=== PATIENT | male | born 2005 | race Caucasian/White ===

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

== ENCOUNTER 2025-01-24 13:58 | Observation (INO) | payer OTHER ==
[~2025-01-24] VITALS: Ht 180.3 cm; Wt 72.6 kg
[2025-01-24] VITALS (12 sets, daily range): BP systolic 99–132; BP diastolic 60–90
[2025-01-24] MEDS ORDERED: FentaNYL Citrate 50 MCG/ML 2 ML Injection IV ONE (14:05)
[2025-01-24 14:23] LABS: BASOPHILS PERCENT AUTO 1 % (0-2); EOSINOPHILS ABSOLUTE AUTO 0.18 K/mm3 (0.00-0.68); EOSINOPHILS PERCENT AUTO 2 % (0-6); Hematocrit 45.4 % (37.0-53.0); IMMATURE GRAN ABSOLUTE AUTO 0.07 K/mm3 (0.00-0.10); IMMATURE GRAN PERCENT AUTO 1 % (0-1); LYMPHOCYTES ABSOLUTE AUTO 5.23 K/mm3 (0.84-5.20); LYMPHOCYTES PERCENT AUTO 43 % (21-46); MONOCYTES ABSOLUTE AUTO 0.85 K/mm3 (0.16-1.47); MONOCYTES PERCENT AUTO 7 % (4-13); Mean Corpuscular HGB 30.5 pg (26.0-34.0); Mean Corpuscular Volume 93 fL (80-100); Mean Platelet Volume 9.4 fL (9.1-12.4); NEUTROPHILS ABSOLUTE AUTO 5.86 K/mm3 (1.96-9.15); NEUTROPHILS PERCENT AUTO 48 % (41-73); Platelet Count 344 K/mm3 (150-400); RDW Coefficient Variation 13.8 % (11.7-14.2); RDW Standard Deviation 47.1 fL (35.1-46.3); Red Blood Cell Count 4.91 M/mm3 (4.30-5.90); White Blood Cell Count 12.29 K/mm3 (4.00-11.30)
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
[2025-01-24] MEDS ORDERED: Bupivacaine 0.5% HCl 5 MG/ML 30MLVIAL ONE (14:50)
[2025-01-24] MEDS ORDERED: Lactated Ringer's 1,000 ML IV SCH (15:05)
--- NOTE | 2025-01-24 15:05 | NUR ---
PT HAS 18G IV IN R AC THAT FLOWS WELL TO GRAVITY, SHOWS NO SIGNS OF INFILTRATION.
[2025-01-24] MEDS ORDERED: Ondansetron HCl 2 MG / ML 2ML Vial ONE (15:08)
[2025-01-24] MEDS ORDERED: Dexamethasone Sod Phos 10 MG/ML 1ML VIAL ONE (15:08)
[2025-01-24] MEDS ORDERED: Ketorolac Tromethamine 30mg Vial ONE (15:08)
[2025-01-24] MEDS ORDERED: Rocuronium Bromide 10 MG/ML 5ML Injection IV ONE (15:08)
[2025-01-24] MEDS ORDERED: Sugammadex Sodium 200 MG/2ML SDV (100 MG/ML) ONE (15:09)
[2025-01-24] MEDS ORDERED: HYDROmorphone HCl/Pf 1MG SYR ONE (15:09)
[2025-01-24] MEDS ORDERED: propofoL 20 ML IV ONE ×2 (15:09→15:17)
[2025-01-24] MEDS ORDERED: CeFAZolin Sodium 1000 mg Vial ONE ×2 (15:09)
[2025-01-24] MEDS ORDERED: FentaNYL Citrate 50 MCG/ML 2 ML Injection ONE (15:09)
[2025-01-24 15:10] LABS: Albumin, Blood 4.3 g/dL (3.4-5.0); Albumin/Globulin Ratio 1.5 (0.8-1.8); Bilirubin, Total 0.3 mg/dL (0.1-1.0); Bun/Creatinine Ratio 9.6 (12.0-20.0); Calcium, Blood 8.9 mg/dL (8.5-10.1); Creatinine, Blood 0.94 mg/dL (0.60-1.20); Globulin, Blood 2.9 g/dL (2.2-4.0); Potassium, Blood 4.6 mmol/L (3.5-5.5); Total Protein, Blood 7.2 g/dL (6.4-8.2)
[2025-01-24] MEDS ORDERED: CeFAZolin Sodium 2,000 MG in NS 100 ML IV SCH (15:10)
[2025-01-24 15:23] LABS: International Normalized Ratio 1.12; Prothrombin Time Results 11.9 Sec (9.7-11.5)
--- NOTE | 2025-01-24 15:52 | NUR ---
01/24/25 1552 Dulce Salazar NOTED: LACERATION TO PTS LEFT FLANK, DR KRUSE AWARE NOTED BY ANESTHESIA CHIP TO BILATERAL FRONT TEETH PRIOR TO INTUBATION
[2025-01-24] MEDS ORDERED: HYDROcodone 5-APAP 325 TAB PO PRN (16:25)
[2025-01-24] MEDS ORDERED: FLU VACC TS2024-25(6MOS UP)/PF 45 MCG/0.5 ML SYRINGE IM SCH (16:25)
[2025-01-24] MEDS ORDERED: Ondansetron 4 MG TAB PO PRN (16:25)
--- NOTE | 2025-01-24 17:20 | NUR ---
POST-OP PATIENT TO ROOM 213 @ 1700, DENIES PAIN, DENIES NAUSEA, 2 INICISION SITES WITH GAUZE AND TEGADERM C/D/I., HYPOACTIVE BOWL TONES. LUNGS SOUND CLEAR, VITALS STABLE. SIPPING ON CL AND FAMILY IN ROOM AT THIS TIME.
--- NOTE | 2025-01-24 18:21 | NUR ---
SHIFT SUMMARY POST- EX LAP NO ACUTE EVENTS THIS SHIFT. DENIES N/V, PAIN. X2 SITES WITH GAUZE AND TEGADERM. AOX4 IND. IN ROOM. FAMILY IN ROOM, CALL LIGHT IN REACH VSS.
[2025-01-24] MEDS ORDERED: Docusate Sodium 100 MG Cap PO SCH (21:00)
--- NOTE | 2025-01-25 04:25 | NUR ---
SHIFT SUMMARY IRON WAS ALERT AND FULLY ORIENTED ON ASSESMENT. PT C/O MINOR ABDOMINAL PAIN. MEDICATED PER EMAR. PT S/O AT BEDSIDE T/O NIGHT. BOTH DRESSINGS TO ABD ARE C/D/I. PAIN WELL CONTROLLED. DENIES NAUSEA. NO ACUTE EVENTS. NO NOTED CHANGES TO PT CONDITION.
[2025-01-25 06:25] VITALS: BP 115/62
[2025-01-25 07:25] VITALS: BP 108/66
[2025-01-25] MEDS ORDERED: Diphth,Pertuss(Acell),Tet Vac 0.5 ML VIAL IM ONE (08:15)
[2025-01-25] MEDS ORDERED: HYDR1TAB94 PO (09:21)
[2025-01-25 09:57] VITALS: BP 144/69
--- NOTE | 2025-01-25 10:39 | NUR ---
DISCHARGE PT AND HIS FAMILY WERE PROVIDED WITH WRITTEN AND VERBAL DISCHARGE INSTRUCTIONS, THEY REPORTED UNDERSTANDING. 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 RELEASE OF INFORMATION FAXED TO [facility]. PAIN MANAGED AT TIME OF DISCHARGE. PRESCRIPTON FOR PAIN MEDICATION SENT HOME WITH PATIENT. PT ASSISTED OUT IN W/C AT 1037.
== END 2025-01-25 10:43 | disposition home or self-care (01) ==
LOC: ER 13:58 → ERHOLD 13:59 → SURS 17:15
PROVIDERS: Student in an Organized Health Care Education/Training Program; ADMIT Surgery
PROC: 0WQF4ZZ Repair Abdominal Wall, Percutaneous Endoscopic Approach (ICD-10-PCS; principal; 2025-01-24 15:15)
DX: K45.8 Other specified abdominal hernia without obstruction or gangrene (principal); S31.111A Laceration without foreign body of abdominal wall, left upper quadrant without penetration into peritoneal cavity, initial encounter; K21.9 Gastro-esophageal reflux disease without esophagitis; W26.0XXA Contact with knife, initial encounter; Z88.0 Allergy status to penicillin
CPT/HCPCS: 36415; 71045; 74177; 80053; 83605; 85025; 85610; 86850; 86900; 86901; 90715; 93005; 93010; 99285-25; A9270; J0690; J1100; J1171; J1885; J2405; J2704; J3010; J7120; Q9967